=== PATIENT | male | born 1945 | race Caucasian/White ===

== ENCOUNTER 2016-09-08 21:01 | Outpatient (CLI) | payer MEDICARE ==
[~2016-09-08 21:01] MED LIST: ATOR10TA66 PO; ATOR20TA66 PO; AZIT250T5 PO; CETI10CA PO; CETI10TA20 PO; CHOL200018 PO; CLC500CT PO; CYAN25003 SL; DEXL60CA5 PO; ENDUR-ACIN PO; FAMO1TAB21 PO; FISH1CAP15 PO; FLC1T PO; FOLI0.8T PO; LOSA25TA21 PO; MAGN400T39 PO; MAGN400T6 PO; MELA10TA PO; METH-336 PO; NIAC500T30 PO; PANT40TA3 PO; PNT40TEC PO; SCR1T1 PO; VIT1TABL82 PO; WHEA144P PO
--- OUTSIDE RECORDS SUMMARY | 2016-09-08 21:03 | XMS REPORT | Continuity of Care Document ---
Author Author [facility] Organization [facility] Address Unknown Phone Unavailable Care Team Providers Care Jewish Thought Professor Name Role Phone DEIDRA BENAVIDEZ MD PCP Insurance Providers Payer Name Policy Number Subscriber Name Relationship Wps Medicare [id number] Donnie Higgins 17 Self / Same As Patient Blue Cross [facility] Supp [id number] Donnie Higgins 17 Self / Same As Patient Advance Directives Directive Response Recorded Date/Time Advance Directives Yes 04/25/16 8:51pm Health Care Power of Internet Assessor No 04/25/16 8:51pm Organ Donor Yes 04/25/16 [...] - 99.5) 04/25/2016 8:51pm Temperature (Calculated Celsius) 36.73570 degrees C (36.4 - 37.5) 04/25/2016 8:51pm [...] 11 inches 04/25/2016 8:51pm Height (Calculated Centimeters) 180.898140 cm 04/25/2016 8:51pm Weight (Pounds) 240 pounds 04/25/2016 8:51pm Weight (Calculated Grams) 77542.399 gm 04/25/2016 8:51pm Weight (Calculated Kilograms) 108.033037 kilograms 04/25/2016 8:51pm Capillary Refill Capillary Refill [...] Date Attending Provider Departed Emergency Room [facility] 04/25/16 8:20pm 04/25 9:59pm GRAHAM VIGIL DO
== END 2016-09-09 06:00 | disposition home or self-care (01) ==
LOC: SLEEP 21:01
PROVIDERS: ATTEND Family Medicine
DX: R06.83 Snoring (principal); G47.36 Sleep related hypoventilation in conditions classified elsewhere
CPT/HCPCS: 95810

== ENCOUNTER 2016-09-16 09:02 | Outpatient (RCR) | payer MEDICARE ==
--- OUTSIDE RECORDS SUMMARY | 2016-08-03 08:12 | XMS REPORT | Continuity of Care Document ---
Author Author [facility] Organization [facility] Address Unknown Phone Unavailable Care Team Providers Care Kiln Door Builder Name Role Phone DEIDRA BENAVIDEZ MD PCP Insurance Providers Payer Name Policy Number Subscriber Name Relationship Wps Medicare [id number] Donnie Higgins 18 Self / Same As Patient Blue Cross [facility] Supp [id number] Donnie Higgins 17 Self / Same As Patient Advance Directives Directive Response Recorded Date/Time Advance Directives Yes 04/25/16 8:51pm Health Care Power of Emergency Veterinary Technician No 04/25/16 8:51pm Organ Donor Yes 04/25/16 8:51pm Resuscitation Status Full Code 04/25/16 8:51pm Problems No problem information available. Medications Current Home Medications Medication Dose Units Route Directions Days/Qty Instructions Start Date Vit B Comp/C/Fa/Iron/Vit E 1 Each 1 Each Oral 03/25/14 Cholecalciferol (Vitamin D3) 2,000 Unit 2,000 Unit Oral Daily Atorvastatin 20 Mg 10 Mg Oral Daily 03/25/14 Cetirizine Hcl 10 Mg 10 Mg Oral Daily 03/25/14 [Endur-Acin] 500 Mg Oral Daily 03/25/14 Folic Acid 1 Mg 500 Mg Oral Daily 03/25/14 Magnesium Oxide 400 Mg 1 Each Oral Daily 03/25/14 Calcium Carbonate 500 Mg 1,000 Mg Oral As Directed 03/25/14 Cetirizine Hcl 10 Mg 10 Mg Oral Daily 04/25/16 Pantoprazole Sodium 40 Mg 40 Mg Oral Daily 04/25/16 Methylcellulose 500 Mg 500 Mg Oral 04/25/16 Past Home Medications Medication Directions Ordered Status Pantoprazole Sodium 40 Mg Tablet.dr, 1 Tab Oral Daily 03/25/14 Discontinued Fish Oil/Dha/Epa 1 Each Capsule, 3 Each Oral Daily 03/25/14 Discontinued Melatonin 10 Mg Tab.mphase, 10 Mg Oral Bedtime 03/25/14 Discontinued Famotidine/Calcium Carb/Mag 1 Each Tab.chew, 1 Each Oral Daily 03/25/14 Discontinued Dexlansoprazole 60 Mg Cap.mp, 60 Mg Oral Daily 04/02/14 Discontinued Sucralfate 1 Gm Tab, 1 Gm Oral Four Times Daily 04/02/14 Discontinued Social History Social History Problem Response Recorded Date/Time Alcohol Use Denies Use 04/25/2016 8:51pm Recreational Drug Use No 04/25/2016 8:51pm Recent Foreign Travel No 04/25/2016 8:51pm Recent Infectious Disease Exposure No 04/25/2016 8:51pm Sexually Transmitted Disease No 04/25/2016 8:51pm Smoking Status Never a Smoker 04/25/2016 8:51pm Recent Hopitalizations No 04/25/2016 8:51pm Sexually Transmitted Disease No 04/25/2016 8:51pm Hx Sexually Transmitted Disorders No 03/25/2014 1:48pm Query Response Start Date Stop Date Smoking Status Never a Smoker Hospital Discharge Instructions No hospital discharge instructions. Plan of Care Discharge Date 04/25/16 9:59pm Disposition 01 HOME, SELF-CARE Condition at Discharge Improved Prescriptions See Medication Section Referrals DEIDRA BENAVIDEZ MD - Primary Care Physician Functional Status No functional status results. Allergies, Adverse Reactions, Alerts No known allergies. Immunizations No immunization records. Vital Signs Acute Vital Signs Vital Response Date/Time Temperature (Fahrenheit) 98.4 degrees F (97.6 - 99.5) 04/25/2016 8:51pm Temperature (Calculated Celsius) 36.70790 degrees C (36.4 - 37.5) 04/25/2016 8:51pm Temperature Source Temporal 04/25/2016 8:51pm Pulse Rate (adult) 118 bpm (60 - 90) 04/25/2016 8:51pm Respiratory Rate 18 bpm (12 - 24) 04/25/2016 8:51pm O2 Sat by Pulse Oximetry 92 % (88 - 100) 04/25/2016 8:51pm Blood Pressure 138/80 mm Hg 04/25/2016 8:51pm Blood Pressure Mean 99 mm Hg 04/25/2016 8:51pm Pain Numeric Pain Scale 5-Moderate Pain 04/25/2016 8:51pm Height (Feet) 5 feet 04/25/2016 8:51pm Height (Inches) 11 inches 04/25/2016 8:51pm Height (Calculated Centimeters) 180.329528 cm 04/25/2016 8:51pm Weight (Pounds) 240 pounds 04/25/2016 8:51pm Weight (Calculated Grams) 17679.399 gm 04/25/2016 8:51pm Weight (Calculated Kilograms) 108.670880 kilograms 04/25/2016 8:51pm Capillary Refill Capillary Refill Less Than 3 Seconds 04/25/2016 8:51pm Height 5 ft 11 in Weight 240 lb Body Mass Index 33.5 kg/m^2 Results Laboratory Results Test Name Result Units Flags Reference Collection Date/Time Result Date/ Time Comments White Blood Count 6.3 10^3/uL 4.3-11.0 04/25/2016 8:34pm 04/25/2016 9: 36pm Red Blood Count 5.10 10^6/uL 4.35-5.85 04/25/2016 8:34pm 04/25/2016 9: 36pm Hemoglobin 15.7 G/DL 13.3-17.7 04/25/2016 8:34pm 04/25/2016 9:36pm Hematocrit 46 % 40-54 04/25/2016 8:34pm 04/25/2016 9:36pm Mean Corpuscular Volume 90 FL 80-99 04/25/2016 8:34pm 04/25/2016 9: 36pm Mean Corpuscular Hemoglobin 31 PG 25-34 04/25/2016 8:34pm 04/25/2016 9: 36pm Mean Corpuscular Hemoglobin Concent 34 G/DL 32-36 04/25/2016 8:34pm 09/2015 9:36pm Red Cell Distribution Width 12.6 % 10.0-14.5 04/25/2016 8:34pm 2015 9:36pm Platelet Count 158 10^3/uL 130-400 04/25/2016 8:34pm 04/25/2016 9:36pm Mean Platelet Volume 10.0 FL 7.4-10.4 04/25/2016 8:34pm 04/25/2016 9: 36pm Neutrophils (%) (Auto) 68 % 42-75 04/25/2016 8:34pm 04/25/2016 9:36pm Lymphocytes (%) (Auto) 14 % 12-44 04/25/2016 8:34pm 04/25/2016 9:36pm Monocytes (%) (Auto) 15 % H 0-12 04/25/2016 8:34pm 04/25/2016 9:36pm Eosinophils (%) (Auto) 3 % 0-10 04/25/2016 8:34pm 04/25/2016 9:36pm Basophils (%) (Auto) 1 % 0-10 04/25/2016 8:34pm 04/25/2016 9:36pm Neutrophils # (Auto) 4.3 X 10^3 1.8-7.8 04/25/2016 8:34pm 04/25/2016 9: 36pm Lymphocytes # (Auto) 0.9 X 10^3 L 1.0-4.0 04/25/2016 8:34pm 04/25/2016 9: 36pm Monocytes # (Auto) 0.9 X 10^3 0.0-1.0 04/25/2016 8:34pm 04/25/2016 9: 36pm Eosinophils # (Auto) 0.2 10^3/uL 0.0-0.3 04/25/2016 8:34pm 04/25/2016 9 :36pm Basophils # (Auto) 0.0 10^3/uL 0.0-0.1 04/25/2016 8:34pm 04/25/2016 9: 36pm Sodium Level 136 MMOL/L 135-145 04/25/2016 8:34pm 04/25/2016 9:46pm Potassium Level 3.9 MMOL/L 3.6-5.0 04/25/2016 8:34pm 04/25/2016 9:46pm Chloride Level 107 MMOL/L 98-107 04/25/2016 8:34pm 04/25/2016 9:46pm Carbon Dioxide Level 17 MMOL/L L 21-32 04/25/2016 8:34pm 04/25/2016 9: 46pm Anion Gap 12 MMOL/L 5-14 04/25/2016 8:34pm 04/25/2016 9:46pm Blood Urea Nitrogen 20 MG/DL H 7-18 04/25/2016 8:34pm 04/25/2016 9:46pm Creatinine 1.42 MG/DL H 0.60-1.30 04/25/2016 8:34pm 04/25/2016 9:46pm BUN/Creatinine Ratio 14 04/25/2016 8:34pm 04/25/2016 9:46pm Estimat Glomerular Filtration Rate 49 04/25/2016 8:34pm 04/25/2016 9:46pm GFR INTERPRETIVE DATA UNITS FOR ESTIMATED GFR (eGFR): mL/min/1.73 M2 REFERENCE RANGE FOR ESTIMATED GFR (eGFR) eGFR NORMAL eGFR >60 MODERATELY DECREASED eGFR 30-59 SEVERLY DECREASED eGFR 15-29 KIDNEY FAILURE <15 (OR DIALYSIS) Glucose Level 121 MG/DL H 70-105 04/25/2016 8:34pm 04/25/2016 9:46pm Calcium Level 8.6 MG/DL 8.5-10.1 04/25/2016 8:34pm 04/25/2016 9:46pm Total Bilirubin 0.6 MG/DL 0.1-1.0 04/25/2016 8:34pm 04/25/2016 9:46pm Alkaline Phosphatase 75 U/L 40-136 04/25/2016 8:34pm 04/25/2016 9:46pm Aspartate Amino Transf (AST/SGOT) 22 U/L 5-34 04/25/2016 8:34pm 2015 9:46pm Alanine Aminotransferase (ALT/SGPT) 31 U/L 0-55 04/25/2016 8:34pm 04/25 9:46pm Total Protein 6.2 G/DL L 6.4-8.2 04/25/2016 8:34pm 04/25/2016 9:46pm Albumin 3.9 G/DL 3.2-4.5 04/25/2016 8:34pm 04/25/2016 9:46pm Lactic Acid Level 1.1 MMOL/L 0.5-2.0 04/25/2016 8:34pm 04/25/2016 9: 43pm Procedures No known history of procedures. Encounters Encounter Location Arrival/Admit Date Discharge/Depart Date Attending Provider Departed Emergency Room [facility] 04/25/16 8:20pm 04/25 9:59pm GRAHAM VIGIL DO
== END 2016-09-16 11:48 | disposition home or self-care (01) ==
PROVIDERS: ATTEND Family Medicine
DX: G62.9 Polyneuropathy, unspecified (principal); R29.6 Repeated falls

== ENCOUNTER 2016-10-26 08:44 | Outpatient (RCR) | payer MEDICARE ==
[2016-10-19 14:04] LABS: BASOPHILS % (AUTO) 1 % (0-10); EOSINOPHILS # (AUTO) 0.1 10^3/uL (0.0-0.3); EOSINOPHILS % (AUTO) 2 % (0-10); LYMPHOCYTES # (AUTO) 1.7 X 10^3 (1.0-4.0); LYMPHOCYTES % (AUTO) 32 % (12-44); MEAN CORPUSCULAR HEMOGLOBIN 30 PG (25-34); MEAN CORPUSCULAR HGB CONC 34 G/DL (32-36); MEAN CORPUSCULAR VOLUME 89 FL (80-99); MEAN PLATELET VOLUME 9.7 FL (7.4-10.4); MONOCYTES # (AUTO) 0.5 X 10^3 (0.0-1.0); MONOCYTES % (AUTO) 9 % (0-12); NEUTROPHILS # (AUTO) 2.9 X 10^3 (1.8-7.8); NEUTROPHILS % (AUTO) 55 % (42-75); PLATELET COUNT 203 10^3/uL (130-400); RED BLOOD COUNT 5.11 10^6/uL (4.35-5.85); RED CELL DISTRIBUTION WIDTH 12.9 % (10.0-14.5); WHITE BLOOD COUNT 5.2 10^3/uL (4.3-11.0)
[2016-10-19 15:02] LABS: ALBUMIN 3.9 G/DL (3.2-4.5); BILIRUBIN,TOTAL 0.6 MG/DL (0.1-1.0); CALCIUM 9.3 MG/DL (8.5-10.1); CREATININE SERUM 1.41 MG/DL (0.60-1.30); POTASSIUM 4.7 MMOL/L (3.6-5.0); TOTAL PROTEIN 6.2 G/DL (6.4-8.2)
== END 2017-01-17 | disposition home or self-care (01) ==
LOC: ONC 08:44
PROVIDERS: ATTEND Internal Medicine Hematology & Oncology
DX: C61 Malignant neoplasm of prostate (principal)
CPT/HCPCS: 36415; 80053; 84153; 85025; 99213

== ENCOUNTER → 2017-03-02 | Outpatient (CLI) | payer MEDICARE ==
[~2017-03-02] MED LIST changes: +AZIT250T12 PO; -AZIT250T5 PO; +NIAC500T29 PO; -NIAC500T30 PO
--- NOTE | 2017-03-02 17:07 | Diagnostic Imaging Report ---
INDICATION: Left hand injury. Pain to the third finger. FINDINGS: Three views of the left hand show flexion at the DIP joint of the third digit which may be secondary to ligamentous injury but no fracture is identified at this site or elsewhere. IMPRESSION: Flexion of the DIP joint of the third digit with no fracture seen. Dictated by: Dictated on workstation # [id number]
== END ==
LOC: RAD 16:38
PROVIDERS: ATTEND Nurse Practitioner Family
DX: M25.542 Pain in joints of left hand (principal)
CPT/HCPCS: 73140

== ENCOUNTER 2017-03-07 10:01 | Outpatient (RCR) | payer MEDICARE ==
[~2017-03-07 10:01] MED LIST changes: -AZIT250T12 PO; +AZIT250T5 PO; -NIAC500T29 PO; +NIAC500T30 PO
== END 2017-04-22 | disposition home or self-care (01) ==
LOC: CARD 10:01
PROVIDERS: ATTEND Nurse Practitioner Family
DX: R00.2 Palpitations (principal)

== ENCOUNTER → 2017-04-26 | Outpatient (CLI) | payer MEDICARE ==
--- NOTE | 2017-04-27 05:52 | STRESS TEST ---
DATE OF SERVICE: 04/26/2017 EXERCISE STRESS ECHOCARDIOGRAM REFERRING PHYSICIAN: Dr. Berman. Baseline heart rate 75. Baseline blood pressure 157/85. Baseline EKG sinus rhythm with no ischemic changes. SUMMARY: The patient started exercising with the baseline heart rate, blood pressure and EKG mentioned above. During exercise, he had occasional PVCs. He was able to exercise for 4 minutes 30 seconds on standard Julio Cesar protocol, achieving maximum heart rate of 130, which is 87% of maximum expected heart rate. With peak exercise level blood pressure was 209/118. EKG was showing minimal nondiagnostic changes. He had occasional PVCs which became slightly more persistent late in recovery. At minute 3, he had an episode of ventricular bigeminy resolved later in recovery. Blood pressure returned to baseline. Echocardiographic images were acquired and reviewed in the parasternal long axis, parasternal short axis, apical four chamber and apical two chamber views. Review of the images was done after the injection of contrast, showed normal left ventricular size with normal contractility with no ischemic changes. CONCLUSION: 1. Fair exercise tolerance, a total of 4 minutes 30 seconds on standard Julio Cesar protocol, achieving 87% of maximum expected heart rate. 2. Frequent PVCs noted at peak stress level and early in recovery, transient episode of ventricular bigeminy resolved later into recovery. 3. Minimal nondiagnostic EKG changes with exercise returned to baseline during recovery. 4. Severe hypertensive response to exercise, returned to baseline during recovery. 5. Normal echocardiographic images at rest and with peak stress level with no ischemic changes. Job ID: [id number] DocumentID: [id number] Dictated Date: 04/26/2017 15:18:00 Milk Drier Date: 04/26/2017 23:19:56 Dictated By: MINNIE PADILLA MD
== END ==
LOC: CARD 10:57
PROVIDERS: ATTEND Internal Medicine Cardiovascular Disease
DX: I49.3 Ventricular premature depolarization; R00.8 Other abnormalities of heart beat; E78.00 Pure hypercholesterolemia, unspecified; I10 Essential (primary) hypertension; E66.9 Obesity, unspecified; I47.1 Supraventricular tachycardia
CPT/HCPCS: 93306

== ENCOUNTER 2017-05-18 13:08 | Outpatient (RCR) | payer MEDICARE ==
[~2017-05-18 13:08] MED LIST changes: +AZIT250T12 PO; -AZIT250T5 PO; +NIAC500T29 PO; -NIAC500T30 PO
== END 2017-08-16 | disposition home or self-care (01) ==
LOC: ONC 13:08
PROVIDERS: ATTEND Internal Medicine Hematology & Oncology
DX: C61 Malignant neoplasm of prostate (principal)
CPT/HCPCS: 36415; 84153

== ENCOUNTER 2017-07-13 10:35 | Outpatient (RCR) | payer MEDICARE | END 2017-08-04 15:53 | disposition home or self-care (01) | PROVIDERS: ATTEND Emergency Medicine | DX: M20.012 Mallet finger of left finger(s) (principal) ==

== ENCOUNTER 2017-10-18 09:03 | Outpatient (RCR) | payer MEDICARE ==
[2017-10-18 09:52] LABS: BASOPHILS % (AUTO) 1 % (0-10); EOSINOPHILS # (AUTO) 0.1 10^3/uL (0.0-0.3); EOSINOPHILS % (AUTO) 2 % (0-10); HEMATOCRIT 46 % (40-54); HEMOGLOBIN 15.8 G/DL (13.3-17.7); LYMPHOCYTES # (AUTO) 1.4 X 10^3 (1.0-4.0); LYMPHOCYTES % (AUTO) 26 % (12-44); MEAN CORPUSCULAR HEMOGLOBIN 31 PG (25-34); MEAN CORPUSCULAR HGB CONC 34 G/DL (32-36); MEAN CORPUSCULAR VOLUME 91 FL (80-99); MONOCYTES # (AUTO) 0.5 X 10^3 (0.0-1.0); MONOCYTES % (AUTO) 9 % (0-12); NEUTROPHILS # (AUTO) 3.5 X 10^3 (1.8-7.8); NEUTROPHILS % (AUTO) 63 % (42-75); PLATELET COUNT 190 10^3/uL (130-400); RED CELL DISTRIBUTION WIDTH 12.9 % (10.0-14.5); WHITE BLOOD COUNT 5.5 10^3/uL (4.3-11.0)
[2017-10-18 10:04] LABS: ALBUMIN 3.8 GM/DL (3.2-4.5); BILIRUBIN,TOTAL 0.7 MG/DL (0.1-1.0); CALCIUM 9.4 MG/DL (8.5-10.1); CREATININE SERUM 1.23 MG/DL (0.60-1.30); POTASSIUM 4.6 MMOL/L (3.6-5.0); TOTAL PROTEIN 5.9 GM/DL (6.4-8.2)
== END 2017-11-16 14:32 | disposition home or self-care (01) ==
LOC: ONC 09:03
PROVIDERS: ATTEND Internal Medicine Hematology & Oncology
DX: C61 Malignant neoplasm of prostate (principal)
CPT/HCPCS: 36415; 80053; 84153; 85025

== ENCOUNTER 2017-11-16 14:28 | Outpatient (RCR) | payer MEDICARE | END 2018-02-14 | disposition home or self-care (01) | LOC: ONC 14:28 | PROVIDERS: ATTEND Internal Medicine Hematology & Oncology | DX: Z08 Encounter for follow-up examination after completed treatment for malignant neoplasm (principal); Z85.46 Personal history of malignant neoplasm of prostate; R97.21 Rising PSA following treatment for malignant neoplasm of prostate; R35.1 Nocturia; N18.3 Chronic kidney disease, stage 3 (moderate); I12.9 Hypertensive chronic kidney disease with stage 1 through stage 4 chronic kidney disease, or unspecified chronic kidney disease; E78.00 Pure hypercholesterolemia, unspecified; I47.1 Supraventricular tachycardia; K21.9 Gastro-esophageal reflux disease without esophagitis; G47.36 Sleep related hypoventilation in conditions classified elsewhere; Z79.899 Other long term (current) drug therapy | CPT/HCPCS: 99213 ==

== ENCOUNTER 2018-07-02 08:30 | Outpatient (RCR) | payer MEDICARE ==
[~2018-07-02 08:30] MED LIST changes: -LOSA25TA21 PO; +LOSA25TA41 PO
== END 2018-08-22 | disposition home or self-care (01) ==
PROVIDERS: ATTEND Family Medicine
DX: M79.652 Pain in left thigh (principal)

== ENCOUNTER → 2018-07-04 | Outpatient (CLI) | payer MEDICARE ==
[~2018-07-04] MED LIST changes: -LOSA25TA41 PO; +LOSA25TA6 PO
--- NOTE | 2018-07-04 12:11 | Diagnostic Imaging Report ---
PROCEDURE: MRI pelvis without contrast. TECHNIQUE: Multiplanar, multisequence MRI of the pelvis was performed without contrast. INDICATION: Fell, left-sided pain. COMPARISON: There are no prior studies available for comparison. FINDINGS: There is no abnormal signal arising from the osseous structures to suggest bone edema or a fracture. There is mild symmetrical sclerosis of the sacroiliac joints. 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 There is no pelvic mass or free fluid collection noted. The prostate gland is enlarged measuring 6.1 cm in maximum transverse diameter (normal 5 cm or less). IMPRESSION: 1. There is no evidence for an acute bony abnormality. 2. 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 3. The prostate gland is enlarged. Dictated by: Dictated on workstation # [id number]
--- NOTE | 2018-07-04 12:21 | Diagnostic Imaging Report ---
PROCEDURE: MRI lumbar spine. TECHNIQUE: Multiplanar, multisequence MRI of the lumbar spine was performed without contrast. INDICATION: Fall. Left lower extremity radiculopathy. COMPARISON: None. FINDINGS: Normal alignment. Vertebral body heights are preserved. Normal bone marrow signal. No abnormal signal in the conus which terminates at L1. Normal morphology of the cauda equina. The visualized pelvis is intact. The visualized abdominal and pelvic contents are unremarkable. At L4-L5, there is facet arthropathy with increased fluid within the facet joints. This combines with ligamentous hypertrophy to result in mild-to- moderate spinal canal and bilateral lateral recess narrowing. This also results in sjzyjudd-ct-wyuootrm bilateral neural foraminal narrowing. At L5-S1, there is also increased fluid in the facet joints. This contributes to uoyg-nl-hetgrggc bilateral lateral recess narrowing. There is no substantial spinal canal or neural foraminal narrowing. The remaining facets demonstrate only mild arthropathy. The intervertebral discs are well-preserved. No other spinal canal, lateral recess or neural foraminal narrowing. IMPRESSION: 1. Facet arthropathy at L4-L5 greater than L5-S1. This contributes to nqkf-th-kyibkmqu lateral recess at both levels, ppev-ln-hpkxkyhv spinal canal narrowing at L4-L5. There is also hbpqwqer-lb-tpzooxjs bilateral neural foraminal narrowing at L4-L5. 2. No other substantial spondylotic change or neural impingement. 3. No acute osseous findings. Dictated by: Dictated on workstation # [id number]
== END ==
LOC: RAD 07:37
PROVIDERS: ATTEND Nurse Practitioner Family
DX: M48.061 Spinal stenosis, lumbar region without neurogenic claudication (principal); M46.87 Other specified inflammatory spondylopathies, lumbosacral region; M16.12 Unilateral primary osteoarthritis, left hip; N40.0 Benign prostatic hyperplasia without lower urinary tract symptoms; W19.XXXA Unspecified fall, initial encounter
CPT/HCPCS: 72148; 72195

== ENCOUNTER 2019-06-28 14:57 | Outpatient (RCR) | payer MEDICARE ==
[~2019-06-28 14:57] MED LIST changes: +LOSA25TA41 PO; -LOSA25TA6 PO
== END 2019-07-07 | disposition home or self-care (01) ==
PROVIDERS: ATTEND Family Medicine
DX: M48.062 Spinal stenosis, lumbar region with neurogenic claudication (principal); Z98.1 Arthrodesis status; Z85.46 Personal history of malignant neoplasm of prostate; Z85.828 Personal history of other malignant neoplasm of skin

== ENCOUNTER 2019-07-25 14:45 | Outpatient (RCR) | payer MEDICARE | END 2019-07-25 16:06 | disposition home or self-care (01) | PROVIDERS: ATTEND Physical Medicine & Rehabilitation | DX: M48.062 Spinal stenosis, lumbar region with neurogenic claudication (principal); M43.26 Fusion of spine, lumbar region; M54.2 Cervicalgia; Z98.1 Arthrodesis status; Z85.46 Personal history of malignant neoplasm of prostate; Z85.828 Personal history of other malignant neoplasm of skin ==

== ENCOUNTER → 2019-08-02 | Outpatient (CLI) | payer MEDICARE ==
[~2019-08-02] MED LIST changes: +RT-ALBUTEROL SULF 2.5 MG/3 ML PRE-MIX VIAL INH ONE
[2019-08-02 12:58] LABS: BASOPHILS # (AUTO) 0.1 10^3/uL (0.0-0.1); BASOPHILS % (AUTO) 1 % (0-10); EOSINOPHILS # (AUTO) 0.2 10^3/uL (0.0-0.3); EOSINOPHILS % (AUTO) 3 % (0-10); HEMATOCRIT 41 % (40-54); LYMPHOCYTES # (AUTO) 1.7 X 10^3 (1.0-4.0); LYMPHOCYTES % (AUTO) 24 % (12-44); MEAN CORPUSCULAR HEMOGLOBIN 26 PG (25-34); MEAN CORPUSCULAR HGB CONC 32 G/DL (32-36); MEAN CORPUSCULAR VOLUME 82 FL (80-99); MONOCYTES # (AUTO) 0.7 X 10^3 (0.0-1.0); MONOCYTES % (AUTO) 9 % (0-12); NEUTROPHILS # (AUTO) 4.6 X 10^3 (1.8-7.8); NEUTROPHILS % (AUTO) 64 % (42-75); PLATELET COUNT 260 10^3/uL (130-400); RED CELL DISTRIBUTION WIDTH 14.4 % (10.0-14.5); WHITE BLOOD COUNT 7.3 10^3/uL (4.3-11.0)
[2019-08-02 13:17] LABS: ALBUMIN 4.1 GM/DL (3.2-4.5); BILIRUBIN,TOTAL 0.5 MG/DL (0.1-1.0); CALCIUM 9.2 MG/DL (8.5-10.1); CREATININE SERUM 1.38 MG/DL (0.60-1.30); TOTAL PROTEIN 6.7 GM/DL (6.4-8.2)
== END ==
LOC: RT 12:22
PROVIDERS: ATTEND Internal Medicine Cardiovascular Disease
DX: E78.5 Hyperlipidemia, unspecified (principal); R06.02 Shortness of breath; I10 Essential (primary) hypertension; I49.3 Ventricular premature depolarization
CPT/HCPCS: 36415; 80053; 80061; 82565; 84443; 84520; 85025; 94060; 94726; 94729

== ENCOUNTER → 2019-08-05 | Outpatient (CLI) | payer MEDICARE ==
[~2019-08-05] MED LIST changes: +HOLD METFORMIN - RECEIVED CONTRAST 20 ML VIAL IV SCH; +IOHEXOL 350 MG/ML 100 ML (OMNIPAQUE 350) VIAL IV ONE; +NS 100 ML (IVPB) BAG IV ONE; -RT-ALBUTEROL SULF 2.5 MG/3 ML PRE-MIX VIAL INH ONE
--- NOTE | 2019-08-05 15:56 | Diagnostic Imaging Report ---
PROCEDURE: CT angiography of the chest with contrast. TECHNIQUE: Multiple contiguous axial images were obtained through the chest after uneventful bolus administration of intravenous contrast. 3D reconstructed CTA MIP acquisitions were also performed. Auto Exposure Controls were utilized during the CT exam to meet ALARA standards for radiation dose reduction. INDICATION: Shortness of breath. COMPARISON: No prior studies are available for comparison. FINDINGS: Evaluation of the pulmonary arterial system does show thromboemboli in the right lower lobe pulmonary artery extending into segmental branches of the right lower lobe. There is some trace thromboemboli in the left lower lobe pulmonary artery. There may be some minimal subsegmental emboli in the left lower lobe as well. There appeared to be some filling defects in the left upper lobe subsegmental branches. Small amount of thromboemboli and right upper lobes segmental and subsegmental branches are seen. Thoracic aorta is without evidence of dissection. There is no pericardial or pleural fluid. Parenchymal evaluation does show some linear scarring or atelectasis in the right lower lobe. There is some linear scarring in the left lower lobe as well. No mass is seen. Upper abdomen demonstrates some circumscribed low densities within the liver consistent with cysts, largest in the caudate lobe measuring 4.2 cm. Small stones in the gallbladder are noted. IMPRESSION: 1. Findings consistent with bilateral pulmonary emboli, as described. 2. Bibasilar subsegmental atelectasis or scarring. 3. Hepatic cysts. 4. Cholelithiasis. Results were discussed with Dr. rOr prior to this dictation. Dictated by: Dictated on workstation # [id number]
== END ==
LOC: RAD 14:47
PROVIDERS: ATTEND Internal Medicine Cardiovascular Disease
DX: K76.89 Other specified diseases of liver (principal); K80.20 Calculus of gallbladder without cholecystitis without obstruction; I49.3 Ventricular premature depolarization; I10 Essential (primary) hypertension; E78.00 Pure hypercholesterolemia, unspecified
CPT/HCPCS: 71275

== ENCOUNTER → 2019-08-06 | Outpatient (CLI) | payer MEDICARE ==
[~2019-08-06] MED LIST changes: -HOLD METFORMIN - RECEIVED CONTRAST 20 ML VIAL IV SCH; -IOHEXOL 350 MG/ML 100 ML (OMNIPAQUE 350) VIAL IV ONE; -NS 100 ML (IVPB) BAG IV ONE
--- NOTE | 2019-08-06 09:52 | Diagnostic Imaging Report ---
PROCEDURE: US Venous Lower Ext Glynn. TECHNIQUE: Multiple real-time grayscale images were obtained over the lower extremities in various projections, bilaterally. Additional duplex Doppler and color Doppler images were also obtained. INDICATION: Left calf pain. COMPARISON: None. FINDINGS: Occlusive deep vein thrombosis is visualized throughout the left superficial femoral vein. There is partially occlusive deep vein thrombosis seen in the left popliteal vein and extending into the calf vessels of the left lower extremity. The left common femoral vein and deep femoral vein are normal in appearance. These vessels show normal compressibility, color flow and doppler augmentation. The right common femoral vein, femoral vein, deep femoral vein, and popliteal vein are normal in appearance. These vessels show normal compressibility, color flow and doppler augmentation. The visualized deep calf veins demonstrate no distinct intraluminal thrombus. IMPRESSION: 1. Occlusive deep vein thrombosis involving the left superficial femoral vein extending into the left popliteal vein and calf vessels. 2. No sonographic evidence of deep venous thrombosis in the right lower extremity. Results were called to KURT Cornelius at the time of the exam by the seasonal customer service associate. Dictated by: Dictated on workstation # [id number]
== END ==
LOC: RAD 08:31
PROVIDERS: ATTEND Internal Medicine Cardiovascular Disease
DX: I83.812 Varicose veins of left lower extremity with pain (principal); I82.432 Acute embolism and thrombosis of left popliteal vein; K21.9 Gastro-esophageal reflux disease without esophagitis; E78.01 Familial hypercholesterolemia
CPT/HCPCS: 93970

== ENCOUNTER 2019-09-25 19:33 | Outpatient (CLI) | payer MEDICARE | END 2019-09-26 06:40 | disposition home or self-care (01) | LOC: SLEEP 19:33 | PROVIDERS: ATTEND Nurse Practitioner Family | DX: G47.10 Hypersomnia, unspecified (principal); G47.36 Sleep related hypoventilation in conditions classified elsewhere | CPT/HCPCS: 95810 ==

== ENCOUNTER → 2020-03-16 | Outpatient (CLI) | payer MEDICARE ==
--- NOTE | 2020-03-16 12:52 | Diagnostic Imaging Report ---
PROCEDURE: US Thyroid. TECHNIQUE: Multiple real-time grayscale images were obtained of the thyroid in various projections. INDICATION: Left thyroid nodule. No prior studies are available for comparison. Right lobe of thyroid measures 5.1 x 2.0 x 1.6 cm and the left lobe measures 5.3 x 2.4 x 2.3 cm. Isthmus is 7 mm in thickness. Right lobe of the thyroid contains a circumscribed hypoechoic nodule in the upper pole approximately 4 mm x 2 mm in size. There is a dominant solid-appearing mass in the left lobe of the thyroid measuring 2.5 x 2.4 x 1.8 cm. This is of mixed central cystic changes present. No microcalcifications are seen. Small cyst in the isthmus are noted. IMPRESSION: Dominant left lobe thyroid nodule. Fine-needle aspiration would be recommended. Dictated by: Dictated on workstation # [id number]
== END ==
LOC: RAD 11:00
PROVIDERS: ATTEND Nurse Practitioner Family
DX: E04.1 Nontoxic single thyroid nodule (principal)
CPT/HCPCS: 76536

== ENCOUNTER → 2020-04-03 | Outpatient (CLI) | payer MEDICARE ==
[~2020-04-03] MED LIST changes: +LIDOCAINE 1% INJ 20 ML 20 ML VIAL INJ ONE
--- NOTE | 2020-04-03 12:02 | Diagnostic Imaging Report ---
INDICATION: Thyroid nodule. Patient presents for ultrasound-guided biopsy. Patient brought to the procedure room and placed on table in the supine position. Ultrasound imaging of the left neck was performed to evaluate appropriate entry site. The left neck was then prepped and draped in usual sterile fashion. Small amount of 1% lidocaine was utilized for local anesthesia. A total of 4 passes were made into the solid dominant mass in the left lobe of the thyroid utilizing 25-gauge needles and fine-needle aspiration technique. A single pass was made utilizing a Rotex needle and a rotated biopsy was obtained. Hemostasis was obtained using manual compression. Patient tolerated the procedure well and left department in stable condition. IMPRESSION: Successful ultrasound-guided fine-needle aspiration and Rotex biopsy of left lobe thyroid dominant nodule. Dictated by: Dictated on workstation # [id number]
== END ==
LOC: RAD 10:30
PROVIDERS: ATTEND Nurse Practitioner Family
DX: E04.1 Nontoxic single thyroid nodule (principal)

== ENCOUNTER 2020-04-17 12:57 | Outpatient (RCR) | payer MEDICARE ==
[2020-04-10 12:35] VITALS: BP 137/70
[2020-04-10] MEDS: FERRIC CARBOXYMALTOSE INJ 750 MG in NS (IVPB) 250 ML IV SCH (12:55)
[~2020-04-17] VITALS: Ht 182.9 cm
[~2020-04-17 12:57] MED LIST changes: -LIDOCAINE 1% INJ 20 ML 20 ML VIAL INJ ONE; -PANT40TA3 PO; +PANT40TA52 PO
[2020-04-17] MEDS: FERRIC CARBOXYMALTOSE INJ 750 MG in NS (IVPB) 250 ML IV SCH (13:30)
[2020-04-17 13:31] VITALS: BP 112/71
[2020-04-17 13:54] VITALS: BP 112/71
== END 2020-04-17 13:55 | disposition home or self-care (01) ==
LOC: SDC 12:57
PROVIDERS: ATTEND Family Medicine
DX: D50.0 Iron deficiency anemia secondary to blood loss (chronic) (principal); Z79.01 Long term (current) use of anticoagulants
CPT/HCPCS: 96365

== ENCOUNTER → 2020-07-06 | Outpatient (CLI) | payer MEDICARE ==
[~2020-07-06] VITALS: Ht 182 cm; Wt 107.0 kg
[~2020-07-06] MED LIST changes: +CATHETER FLUSH 10 ML SYR IV PRN; +REGADENOSON 0.4 MG/5 ML SYR (LEXISCAN) IV ONE
[2020-07-06 09:28] VITALS: BP 151/95
--- NOTE | 2020-07-06 13:22 | Cardiology Stress Test Report ---
Stress Test Report Date of Procedure/Referring: Date of Procedure: Jul 06, 2020 PCP Franca Portillo Admitting Physician Tamika Berman MD Indications: hypertension Baseline Blood Pressure: Blood Pressure Systolic: 151 Blood Pressure Diastolic: 95 Baseline Vitals Vital Signs Date Time Temp Pulse Resp B/P (MAP) Pulse Ox O2 Delivery O2 Flow Rate FiO2 07/06/20 09:28 91 151/95 (113) 98 Baseline EKG: Baseline EKG: normal sinus rhythm Summary After explaining the procedure to the patient, he signed a consent and then brought to the stress nuclear laboratory. Patient received 0.4 mg Lexiscan for stress test, ECG, heart rate and blood pressure were monitored continuously. Resting and stress dose of radio tracer were injected, imaging was acquired and reviewed in short axis, horizontal long axis and vertical long axis views. TID: 1.12 SSS: 8 SDS: 0 EF: 55 1. Patient tolerated Lexiscan well 2. Diaphragmatic attenuation with fixed defect involving the mid to apical inferior wall and inferoseptum, no significant ischemia was noted 3. Normal left ventricular size, EF 55 percent MINNIE PADILLA MD Jul 06, 2020 13:22
== END ==
LOC: CARD 08:00
PROVIDERS: ATTEND Physician Assistant
DX: C61 Malignant neoplasm of prostate (principal); I80.209 Phlebitis and thrombophlebitis of unspecified deep vessels of unspecified lower extremity; I26.99 Other pulmonary embolism without acute cor pulmonale
CPT/HCPCS: 78452; 93017; A9502